=== PATIENT | male | born 2000 ===

== ENCOUNTER 2024-03-20 19:12 | Emergency (ER) | payer MEDICAID ==
[~2024-03-20] VITALS: Ht 172.7 cm; Wt 65.9 kg
[2024-03-20 19:17] VITALS: TEMP 97.9
[2024-03-20 19:56] VITALS: BP 127/68; PULSE 79; RESP 16
[2024-03-20] MEDS: IBUPROFEN 600 MG TABLET PO ONE (20:21)
[2024-03-20] MEDS: ACETAMINOPHEN 500 MG TABLET PO ONE (20:22)
== END 2024-03-20 22:09 | disposition home or self-care (01) ==
LOC: EMS 19:12
DX: S62.001A Unspecified fracture of navicular [scaphoid] bone of right wrist, initial encounter for closed fracture (principal); J45.909 Unspecified asthma, uncomplicated; F12.90 Cannabis use, unspecified, uncomplicated; X58.XXXA Exposure to other specified factors, initial encounter; Y93.89 Activity, other specified; Y92.89 Other specified places as the place of occurrence of the external cause; Y99.8 Other external cause status
CPT/HCPCS: 99283